=== PATIENT | female | born 1985 | race Two or more races ===

== ENCOUNTER 2020-04-07 10:29 | Outpatient (CLI) | payer OTHER ==
[2020-04-11] MEDS ORDERED: SUPRAX100 MG/5 M PO (11:01)
[2020-04-11] MEDS ORDERED: IRON 100 PLUS1 EACH PO (11:09)
== END 2020-04-07 11:22 | disposition home or self-care (01) ==
LOC: NST 10:29
PROVIDERS: ATTEND Obstetrics & Gynecology Maternal & Fetal Medicine
DX: Z34.83 Encounter for supervision of other normal pregnancy, third trimester (principal)

== ENCOUNTER 2020-04-11 10:48 | Inpatient (IN) | payer OTHER | END 2020-04-13 13:36 | disposition home or self-care (01) | DRG 807 | LOC: LDR 10:48 → OB/GYN 15:40 | PROVIDERS: ADMIT Obstetrics & Gynecology | PROC: 10E0XZZ Delivery of Products of Conception, External Approach (ICD-10-PCS; principal; 2020-04-11) | PROC: 3E033VJ Introduction of Other Hormone into Peripheral Vein, Percutaneous Approach (ICD-10-PCS; 2020-04-11) | PROC: 4A1HXFZ Monitoring of Products of Conception, Cardiac Rhythm, External Approach (ICD-10-PCS; 2020-04-11) | DX: O80 Encounter for full-term uncomplicated delivery (principal); Z37.0 Single live birth; Z3A.39 39 weeks gestation of pregnancy ==

== ENCOUNTER 2023-11-22 22:34 | Emergency (ER) | payer OTHER ==
[~2023-11-22] VITALS: Ht 154.9 cm; Wt 40.8 kg
[~2023-11-22 22:34] MED LIST: IRON 100 PLUS1 EACH PO; SUPRAX100 MG/5 M PO
[2023-11-23 04:47] LABS: HEMATOCRIT 31.1 % (36.0-45.00); HEMOGLOBIN 10.4 g/dL (12.0-15.00); MEAN CELL VOLUME 92.9 fL (80.00-100.00); MEAN CORPUSCULAR HEMOGLOBIN 31.2 pg (27.00-32.0); MEAN CORPUSCULAR HGB CONC 33.6 g/dl (32.0-36.0); PLATELET COUNT 329 K/uL (150-450); RED BLOOD COUNT 3.35 M/uL (4.00-6.00); RED CELL DISTRIBUTION WIDTH 13.7 % (11.5-14.5)
== END 2023-11-23 06:29 | disposition home or self-care (01) ==
LOC: ER 22:34
DX: N94.6 Dysmenorrhea, unspecified (principal)